=== PATIENT | female | born 1985 | race Caucasian/White ===

== ENCOUNTER → 2016-09-16 | Day surgery (SDC) | payer BC ==
[2016-08-31 12:19] VITALS: Ht 172.7 cm; Wt 54.5 kg
[~2016-09-16] VITALS: Ht 172.7 cm; Wt 54.5 kg
[~2016-09-16] MED LIST: AMT50 PO; BUPIVACAINE 0.25% 2.5MG/ML PF 10 ML VIAL INFIL ONE; GABA-112 PO; GABA-113 PO; IOPAMIDOL INJ 61% 15 ML VIAL ONE; LIDOCAINE HCL 1% MPF 5 ML VIAL ONE; MELO7.5T5 PO; MULT-506 PO; TRAM-10 PO
--- NOTE | 2016-09-16 14:41 | History & Physical Bridge - [place] ---
H&P Re-Evaluation Bridge Note: I have examined the patient, reviewed the History & Physical and in the interval since the performance of the History & Physical I have noted the following changes of clinical significance: No changes noted
[2016-09-16 15:02] VITALS: BP 110/77; PULSE 95; TEMP 37; O2SAT 100
--- NOTE | 2016-09-16 15:04 | Discharge Instructions ---
Discharge Instructions Date of Service Sep 16, 2016. Visit Reason for Visit: Sacroiliitis Discharge Discharge Diagnosis / Problem: low back pain Discharge Goals Goal(s): Decrease discomfort, Improve function Activity Recommendations Activity Limitations: resume your previous activity Anesthesia . Post Anesthesia Instructions: If you have had General Anesthesia or IV Sedation: * Do not drive today. * Resume driving when surgeon permits. * Do not make important decisions or sign legal documents today. * Call surgeon for: 1. Temperature elevations greater than 101 degrees F. 2. Uncontrollable pain. 3. Excessive bleeding. 4. Persistent nausea and vomiting. 5. Medication intolerance (nausea, vomiting or rash). * For nausea and vomiting use only clear liquids such as: tea, soda, bouillon until nausea subsides, then gradually increase diet as tolerated. * If you have any concerns or questions, call your surgeon's office. If physician is unavailable and it is an emergency, call 911 or go to the nearest emergency room. . Diet Recommendations Recommended Home Diet: resume previous diet Procedures Procedures Performed: Left Sacroiliac Joint Injection Block Pending Studies Studies pending at discharge: no Medical Emergencies . Who to Call and When: Medical Emergencies: If at any time you feel your situation is an emergency, please call 911 immediately. . Non-Emergent Contact Non-Emergency issues call your: Specialist . . "Provider Documentation" section prepared by Gerardo Goncalves.
--- NOTE | 2016-09-16 15:53 | OPERATIVE REPORT ---
DATE OF OPERATION: 09/16/2016 PREOPERATIVE DIAGNOSIS: Left sacroiliitis. POSTOPERATIVE DIAGNOSIS: Same. PROCEDURE: Left sacroiliac joint block. INDICATIONS FOR PROCEDURE: The patient is a 31-year-old white female who underwent an SI joint injection and had relief for length of the anesthetic. She did not get any additional relief from the steroid injection. She reports that her pain has returned and it is excruciatingly painful 7/10 to 10/10 at the worst and 2/10 at the least, presents today for a diagnostic block of the SI joint to confirm that this is indeed the pain generator with 2 successful blocks. Plan would be for cooled radiofrequency denervation. PHYSICAL EXAMINATION: Pleasant female seated comfortably. She has point tenderness to palpation of left SI joint. There is increased pain with extension. She has normal motor and sensory examination. She has a positive Rey maneuver. CONSENT: Verbal and written consent was obtained from the patient. Risks and benefits were reviewed. Risks include but are not limited to abscess and allergic reaction. The patient wishes to proceed. DESCRIPTION OF PROCEDURE: The patient was taken back to the special procedures room of the [facility] where she was maintained in a prone position. Backside was cleansed with Betadine x3 and a dry sterile dressing was applied. Fluoroscope was used to identify the left SI joint and the overlying skin was anesthetized with 2.5 mL of lidocaine 1% with a 25-gauge 1.5-inch needle. A 25-gauge 3.5-inch spinal needle was then directed into the SI joint under fluoroscopic guidance. Isovue 300 contrast 0.25 mL demonstrated to be a little extraarticular. It was repositioned and the tip was noted to be intraarticular as well with additional 0.25 mL of Isovue 300. She then underwent injection after negative aspiration of 2.5 mL of bupivacaine 0.25%. Injection was well tolerated. DISPOSITION: 1. The patient is taken out into the discharge recovery area where she will be discharged home once discharge criteria have been met. 2. Follow up in the [facility] office in 2-4 weeks. I attest to the content of the Intraoperative Record and any orders documented therein. Any exceptio ns are noted below.
== END | disposition home or self-care (01) ==
LOC: X.SURG 14:02
PROVIDERS: ATTEND Physical Medicine & Rehabilitation
DX: M46.1 Sacroiliitis, not elsewhere classified (principal)

== ENCOUNTER → 2016-12-03 | Day surgery (SDC) | payer BC ==
[2016-11-11 16:04] VITALS: Ht 172.7 cm; Wt 53.2 kg
[~2016-12-03] VITALS: Ht 172.7 cm; Wt 53.2 kg
[~2016-12-03] MED LIST changes: -BUPIVACAINE 0.25% 2.5MG/ML PF 10 ML VIAL INFIL ONE; +DEXAMETHASONE SOD INJ 4 MG/ML VIAL ONE; +FENTANYL CITRATE INJ 50 MCG/1 ML 2 ML VIAL IV PRN; +FENTANYL CITRATE INJ 50 MCG/1 ML 2 ML VIAL ONE; -IOPAMIDOL INJ 61% 15 ML VIAL ONE; +LACTATED RINGER'S 1000ML 1,000 ML IV PRN; +LACTATED RINGER'S 1000ML 1,000 ML IV SCH; +LIDOCAINE HCL 1% 20 ML VIAL ONE; -LIDOCAINE HCL 1% MPF 5 ML VIAL ONE; +LIDOCAINE HCL 2% 2 ML VIAL (20MG/ML) ONE; +MIDAZOLAM HCL 1 MG/ML 2ML VIAL ONE; +ONDANSETRON INJ 2 MG/ML 2 ML VIAL IV PRN; +ONDANSETRON INJ 2 MG/ML 2 ML VIAL ONE; +PROPOFOL IV EMULSION 10 MG/ML 20 ML VIAL IV ONE
[2016-12-03 10:53] VITALS: TEMP 37.4
--- NOTE | 2016-12-03 10:57 | Discharge Instructions ---
Discharge Instructions Date of Service Dec 03, 2016. Visit Reason for Visit: Sacroiliitis Discharge Discharge Diagnosis / Problem: low back pain Discharge Goals Goal(s): Decrease discomfort, Improve function Medications Stopped Medications Name(s): DANNIELLE STOPPED 3 WEEKS AGO Activity Recommendations Activity Limitations: resume your previous activity Anesthesia . Post Anesthesia Instructions: If you have had General Anesthesia or IV Sedation: * Do not drive today. * Resume driving when surgeon permits. * Do not make important decisions or sign legal documents today. * Call surgeon for: 1. Temperature elevations greater than 101 degrees F. 2. Uncontrollable pain. 3. Excessive bleeding. 4. Persistent nausea and vomiting. 5. Medication intolerance (nausea, vomiting or rash). * For nausea and vomiting use only clear liquids such as: tea, soda, bouillon until nausea subsides, then gradually increase diet as tolerated. * If you have any concerns or questions, call your surgeon's office. If physician is unavailable and it is an emergency, call 911 or go to the nearest emergency room. . Diet Recommendations Recommended Home Diet: resume previous diet Procedures Procedures Performed: Left Cooled Sacroiliac Joint Denervation Pending Studies Studies pending at discharge: no Medical Emergencies . Who to Call and When: Medical Emergencies: If at any time you feel your situation is an emergency, please call 911 immediately. . Non-Emergent Contact Non-Emergency issues call your: Specialist . . "Provider Documentation" section prepared by Gerardo Goncalves. .
[2016-12-03 11:18] VITALS: BP 98/65; PULSE 72; O2SAT 100
--- NOTE | 2016-12-03 11:26 | Anesthesia Progress Nt - [facility] ---
Anesthesia Post Op Note Date & Time Dec 03, 2016 at 11:25 Vital Signs Pain Intensity: 0 Vital Signs Past 12 Hours Date Time Temp Pulse Resp B/P (MAP) Pulse Ox O2 Delivery O2 Flow Rate FiO2 12/03/16 11:18 72 14 98/65 (76) 100 Room Air 12/03/16 10:53 37.4 62 16 99/65 (76) 100 Room Air 12/03/16 09:11 37.0 90 20 103/73 (83) 97 Room Air Notes Mental Status: alert / awake / arousable, participated in evaluation Pt Amnestic to Procedure: Yes Nausea / Vomiting: adequately controlled Pain: adequately controlled Airway Patency, RR, SpO2: stable & adequate BP & HR: stable & adequate Hydration State: stable & adequate Anesthetic Complications: no major complications apparent
--- NOTE | 2016-12-03 11:43 | OPERATIVE REPORT ---
DATE OF OPERATION: 12/03/2016 PREOPERATIVE DIAGNOSIS: Left sacroiliitis. POSTOPERATIVE DIAGNOSIS: Same. PROCEDURE: Left sacroiliac joint cooled radiofrequency denervation. INDICATIONS: The patient is a 31-year-old white female who has had problems with chronic low back pain localizing in the sacroiliac region. She has had 2 successful blocks of the sacroiliac joint and she presents today for denervation to provide her with longer lasting relief. PHYSICAL EXAMINATION: Pleasant female seated comfortably, in no apparent distress. She has point tenderness to palpation of the left SI joint. She has reproduction of pain with extension, no problems with flexion. Positive JERZY maneuver on the left. Intact motor and sensory exam lower extremities. CONSENT: Verbal and written consent was obtained from the patient. Risks and benefits were reviewed. Risks include but are not limited to an abscess, allergic reaction, and denervation. She wishes to proceed. PROCEDURE IN DETAIL: The patient was taken back into OR #1 of the [facility] where she was maintained in a prone position. Backside was cleansed with Betadine x3 and a dry sterile dressing was applied. She had conscious sedation throughout the procedure but was able to converse freely. Fluoroscope was used to identify the sacrum and the left side at the point superior to S1 and lateral to S1 was anesthetized with 5 mL of lidocaine 1% with a 25-gauge 1.5-inch needle and a point lateral to inferior S2 foramen was anesthetized with 3 mL of lidocaine 1%. She then underwent placement of the cooling needle and targets were the left sacral ala, the left superior S1 foramen, the lateral S1 foramen, the inferior lateral S1 foramen, superior lateral S2 foramen, lateral S2 foramen, inferior lateral S2 foramen, and superior lateral S3 foramen, cooling to 60 degrees 2 minutes and 30 seconds at each site. DISPOSITION: The patient is taken out into the discharge area where she will be discharged home once discharge criteria have been met. Follow up in the [facility] office in 4 weeks' time. I attest to the content of the Intraoperative Record and any orders documented therein. Any exceptions are noted below. SHELLID
== END | disposition home or self-care (01) ==
LOC: X.SURG 09:00
PROVIDERS: ATTEND Physical Medicine & Rehabilitation
DX: M46.1 Sacroiliitis, not elsewhere classified (principal)

== ENCOUNTER → 2017-05-25 | Day surgery (SDC) | payer BC ==
[2017-05-18 12:02] VITALS: Ht 172.7 cm; Wt 55.5 kg
[~2017-05-25] VITALS: Ht 172.7 cm; Wt 55.5 kg
[~2017-05-25] MED LIST changes: +BUPIVACAINE 0.25% 2.5MG/ML PF 10 ML VIAL ONE; -DEXAMETHASONE SOD INJ 4 MG/ML VIAL ONE; -FENTANYL CITRATE INJ 50 MCG/1 ML 2 ML VIAL IV PRN; -FENTANYL CITRATE INJ 50 MCG/1 ML 2 ML VIAL ONE; +IOPAMIDOL INJ 61% 15 ML VIAL ONE; -LACTATED RINGER'S 1000ML 1,000 ML IV PRN; -LACTATED RINGER'S 1000ML 1,000 ML IV SCH; -LIDOCAINE HCL 1% 20 ML VIAL ONE; +LIDOCAINE HCL 1% MPF 5 ML VIAL ONE; -LIDOCAINE HCL 2% 2 ML VIAL (20MG/ML) ONE; -MELO7.5T5 PO; +METHYLPREDNISOLONE ACETATE 80 MG/ML VIAL ONE; -MIDAZOLAM HCL 1 MG/ML 2ML VIAL ONE; -ONDANSETRON INJ 2 MG/ML 2 ML VIAL IV PRN; -ONDANSETRON INJ 2 MG/ML 2 ML VIAL ONE; -PROPOFOL IV EMULSION 10 MG/ML 20 ML VIAL IV ONE
[2017-05-25 13:58] VITALS: TEMP 36.5
--- NOTE | 2017-05-25 15:08 | Discharge Instructions ---
Discharge Instructions Date of Service May 25, 2017. Visit Reason for Visit: Sacroiliitis Discharge Discharge Diagnosis / Problem: low back pain Discharge Goals Goal(s): Decrease discomfort, Improve function Activity Recommendations Activity Limitations: resume your previous activity Anesthesia . Post Anesthesia Instructions: If you have had General Anesthesia or IV Sedation: * Do not drive today. * Resume driving when surgeon permits. * Do not make important decisions or sign legal documents today. * Call surgeon for: 1. Temperature elevations greater than 101 degrees F. 2. Uncontrollable pain. 3. Excessive bleeding. 4. Persistent nausea and vomiting. 5. Medication intolerance (nausea, vomiting or rash). * For nausea and vomiting use only clear liquids such as: tea, soda, bouillon until nausea subsides, then gradually increase diet as tolerated. * If you have any concerns or questions, call your surgeon's office. If physician is unavailable and it is an emergency, call 911 or go to the nearest emergency room. . Diet Recommendations Recommended Home Diet: no limitations Procedures Procedures Performed: LEFT L5-S1 FACET JOINT INJECTION Pending Studies Studies pending at discharge: no Medical Emergencies . Who to Call and When: Medical Emergencies: If at any time you feel your situation is an emergency, please call 911 immediately. . Non-Emergent Contact Non-Emergency issues call your: Specialist . . "Provider Documentation" section prepared by Gerardo Goncalves. .
[2017-05-25 15:09] VITALS: BP 111/77; PULSE 88; O2SAT 99
--- NOTE | 2017-05-25 15:27 | OPERATIVE REPORT ---
DATE OF OPERATION: 05/25/2017 PREOPERATIVE DIAGNOSIS: Left L5-S1 facet arthropathy. POSTOPERATIVE DIAGNOSIS: Same. PROCEDURE PERFORMED: Left L5-S1 facet joint injection under fluoroscopic guidance. INDICATIONS: The patient is a 31-year-old white female who has had chronic low back pain issues and responded very favorably to a sacroiliac denervation 6 months ago. She is describing she has pain above the site of the denervation localizing to the L5-S1 facet. She presents today for a facet joint injection to provide her with relief of the residual pain that she has. PHYSICAL EXAMINATION: Pleasant female seated comfortably. She has point tenderness to palpation over the left L5-S1 facet joint, this is worse with extension and rotation. She has normal motor and sensory examination. CONSENT: Risks and benefits were reviewed with the patient, which include but are not limited to abscess and allergic reaction. She wishes to proceed. DESCRIPTION OF PROCEDURE: The patient was taken back to the special procedures room of [facility]. She was maintained in a prone position. Backside was cleansed with Betadine x3 and a dry sterile dressing was applied. Fluoroscope was used to identify the L5-S1 facet region with an AP view. She then underwent an oblique view to identify the joint with anesthetization of the overlying skin of the joint with lidocaine 1% with a 25 gauge 1.5-inch needle. A 25 gauge 3.5 inch spinal needle was then directed under fluoroscopic guidance into the facet joint was then injected with Isovue 300, 0.25 mL which showed intra-articular placement. She then underwent injection after negative aspiration of 40 mg of Depo-Medrol and 0.5 mL of bupivacaine 0.25%. Injection was well tolerated. DISPOSITION: 1. The patient is taken out into the discharge recovery area where she will be discharged home once discharge criteria have been met. 2. Follow up in the [facility] office in 2-4 weeks. I attest to the content of the Intraoperative Record and any orders documented therein. Any exception s are noted below.
== END | disposition home or self-care (01) ==
LOC: X.SURG 13:44
PROVIDERS: ATTEND Physical Medicine & Rehabilitation
DX: M46.1 Sacroiliitis, not elsewhere classified (principal)

== ENCOUNTER → 2017-08-29 | Day surgery (SDC) | payer BC ==
[2017-08-16 12:21] VITALS: Ht 172.7 cm; Wt 55.5 kg
[~2017-08-29] VITALS: Ht 172.7 cm; Wt 55.5 kg
[~2017-08-29] MED LIST changes: +AMT25 PO; -AMT50 PO; -METHYLPREDNISOLONE ACETATE 80 MG/ML VIAL ONE
--- NOTE | 2017-08-29 14:47 | [facility] Post Operative Brief Note ---
Immediate Operative Summary Operative Date Aug 29, 2017. Pre-Operative Diagnosis Left Sacroiliitis Post-Operative Diagnosis Same Procedure(s) Performed Left Sacroiliac Joint Injection Surgeon Dr. Rodrigo Goncalves Sports Physical Therapist Surgeon(s) None Estimated Blood Loss 0 Findings Consistent with Post-Op Diagnosis Specimens NA Drains None Anesthesia Type Local Complication(s) none Disposition Disposition:
[2017-08-29 14:48] VITALS: TEMP 36.7
--- NOTE | 2017-08-29 14:48 | Discharge Instructions ---
Discharge Instructions Date of Service Aug 29, 2017. Visit Reason for Visit: Sacroiliitis Discharge Discharge Diagnosis / Problem: left SI pain Discharge Goals Goal(s): Decrease discomfort, Improve function Activity Recommendations Activity Limitations: resume your previous activity Anesthesia . Post Anesthesia Instructions: If you have had General Anesthesia or IV Sedation: * Do not drive today. * Resume driving when surgeon permits. * Do not make important decisions or sign legal documents today. * Call surgeon for: 1. Temperature elevations greater than 101 degrees F. 2. Uncontrollable pain. 3. Excessive bleeding. 4. Persistent nausea and vomiting. 5. Medication intolerance (nausea, vomiting or rash). * For nausea and vomiting use only clear liquids such as: tea, soda, bouillon until nausea subsides, then gradually increase diet as tolerated. * If you have any concerns or questions, call your surgeon's office. If physician is unavailable and it is an emergency, call 911 or go to the nearest emergency room. . Diet Recommendations Recommended Home Diet: resume previous diet Procedures Procedures Performed: Left Sacroiliac Joint Injection Pending Studies Studies pending at discharge: no Medical Emergencies . Who to Call and When: Medical Emergencies: If at any time you feel your situation is an emergency, please call 911 immediately. . Non-Emergent Contact Non-Emergency issues call your: Specialist . . "Provider Documentation" section prepared by Gerardo Goncalves. .
[2017-08-29 15:04] VITALS: BP 118/79; PULSE 78; O2SAT 100
--- NOTE | 2017-08-29 15:05 | OPERATIVE REPORT ---
DATE OF OPERATION: 08/29/2017 PREOPERATIVE DIAGNOSIS: Left sacroiliitis. POSTOPERATIVE DIAGNOSIS: Same. PROCEDURE: Left sacroiliac joint injection under fluoroscopic guidance. INDICATIONS: The patient is a 32-year-old white female, who has received injections in the past. She feels that the left SI joint has been most helpful for her. She had a denervation that was done nearly 7 months ago and some the pain is starting to return. We feel that a joint injection provides her more relief than the denervation does. PHYSICAL EXAMINATION: Pleasant female seated comfortably in no apparent distress. She has some point tenderness to palpation of her left SI joint, worse with extension. No problems with flexion. She has a positive Rey maneuver. No focal weakness. CONSENT: Verbal and written consent was obtained from the patient. Risks and benefits were reviewed. Risks include, but are not limited to abscess, epidural hematoma, and allergic reaction. DESCRIPTION OF PROCEDURE: The patient was taken back into the special procedures room of the [facility], where she was maintained in a prone position. Backside was cleansed with Betadine x3 and a dry sterile dressing was applied. Fluoroscope was used to identify the left SI joint and the overlying skin was anesthetized with 2.5 mL of lidocaine 1% with a 25-gauge 1-1/2 inch needle. A 25-gauge 3-1/2 inch spinal needle was then directed under fluoroscopic guidance into the joint. Isovue 300 contrast less than a 0.25 mL showed it to be intra-articular. She then underwent injection after negative aspiration of 40 mg of Depo-Medrol and 1.5 mL of bupivacaine 0.25%. Injection was well tolerated. DISPOSITION: 1. The patient was taken out into the discharge recovery area, where she will be discharged home once discharge criteria have been met. 2. Follow up in the [facility] office 4 weeks' time. I attest to the content of the Intraoperative Record and any orders documented therein. Any exception s are noted below.
== END | disposition home or self-care (01) ==
LOC: X.SURG 13:12
PROVIDERS: ATTEND Physical Medicine & Rehabilitation
DX: M46.1 Sacroiliitis, not elsewhere classified (principal); M54.5 Low back pain; Z79.899 Other long term (current) drug therapy